=== PATIENT | female | born 1965 | race Caucasian/White ===

== ENCOUNTER 2022-10-20 15:30 | Inpatient (IN) | payer OTHER ==
[~2022-10-20] VITALS: Ht 160 cm; Wt 111.1 kg
[2022-10-21] MEDS ORDERED: DICLOFENAC POTA50 MG (10:48)
[2022-10-21] MEDS ORDERED: METFORMIN HCL500 M1 (10:48)
[2022-10-21] MEDS ORDERED: DIETHYLPROPION75 MG (10:48)
== END 2022-10-22 11:47 | disposition home or self-care (01) | DRG 358 ==
LOC: O/R 10-21 09:18 → SURG 10-21 21:08 → SURH 11-04 15:30
PROVIDERS: ADMIT Specialist; ATTEND Specialist
PROC: 0HBV0ZZ Excision of Bilateral Breast, Open Approach (ICD-10-PCS; 2022-10-21)
PROC: 0JB80ZZ Excision of Abdomen Subcutaneous Tissue and Fascia, Open Approach (ICD-10-PCS; principal; 2022-10-21 07:15)
DX: K65.4 Sclerosing mesenteritis (principal); N64.81 Ptosis of breast; D17.1 Benign lipomatous neoplasm of skin and subcutaneous tissue of trunk; L98.7 Excessive and redundant skin and subcutaneous tissue; Z20.822 Contact with and (suspected) exposure to COVID-19